=== PATIENT | male | born 2005 | race Caucasian/White ===

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

== ENCOUNTER → 2025-03-07 | Outpatient (CLI) | payer OTHER | LOC: M PLARAD 11:21 | PROVIDERS: ATTEND Student in an Organized Health Care Education/Training Program | DX: R16.2 Hepatomegaly with splenomegaly, not elsewhere classified (principal) | CPT/HCPCS: 78815; A9552 ==